=== PATIENT | female | born 1975 | race Caucasian/White ===

== ENCOUNTER 2017-01-20 17:00 | Outpatient (CLI) | payer OTHER ==
[2017-01-20 17:26] LABS: BASOPHILS % 0.4 (0.0-1.5); EOSINOPHILS % 1.6 % (0.0-6.8); MEAN CORPUSCULAR HEMOGLOBIN 30.5 pg (28.0-34.0); MEAN CORPUSCULAR VOLUME 86.1 fl (80.0-100.0); MONOCYTES % 3.8 % (0.0-11.0); NEUTROPHILS # 3.2 # k/uL (1.4-7.7)
[2017-01-20 17:51] LABS: eGFR (African) > 60; eGFR (Non-African) > 60
== END 2017-01-20 17:02 ==
LOC: LAB 17:00
PROVIDERS: ATTEND Family Medicine
DX: Z79.899 Other long term (current) drug therapy (principal)
CPT/HCPCS: 36415; 80053; 85025; 86431

== ENCOUNTER 2017-02-03 16:54 | Outpatient (CLI) | payer OTHER | END 2017-02-03 16:55 | LOC: LAB 16:54 | PROVIDERS: ATTEND Specialist | DX: Z79.899 Other long term (current) drug therapy (principal) | CPT/HCPCS: 36415; 82550; 83036; 83516; 85651 ==